=== PATIENT | male | born 1990 | race Hispanic/Latino ===

== ENCOUNTER 2018-03-03 21:20 | Emergency (ER) | payer SELFPAY ==
[2018-03-03 21:36] VITALS: BP 121/71
--- NOTE | 2018-03-04 01:32 | Emergency Department Report ---
ED Medical Clearance HPI - General Chief complaint: Medical Clearance Stated complaint: MEDICATION REFILL Time Seen by Provider: 03/04/18 01:03 Source: patient Mode of arrival: Ambulatory - History of Present Illness Initial comments: Patient denies acute complaint at this time requesting refill for gabapentin 800 mg by mouth 3 times a day on years thyroid cannot see for 3 weeks Home medications: Home Medications Medication Instructions Recorded Confirmed Last Taken Neurontin 800 mg PO TID 03/03/18 03/03/18 Unknown Previous Rx's Medication Instructions Recorded Last Taken Type Gabapentin [Neurontin] 800 mg PO TID #90 tablet 03/04/18 Unknown Rx Allergies/Adverse reactions: Allergies Allergy/AdvReac Type Severity Reaction Status Date / Time levetiracetam [From [facility]] Allergy Hives Verified 03/03/18 21:36 ED Review of Systems ROS: Stated complaint: MEDICATION REFILL Other details as noted in HPI Constitutional: denies: chills, fever Eyes: denies: eye pain, eye discharge, vision change ENT: denies: ear pain, throat pain Respiratory: denies: cough, shortness of breath, wheezing Cardiovascular: denies: chest pain, palpitations Endocrine: no symptoms reported Gastrointestinal: denies: abdominal pain, nausea, diarrhea Genitourinary: denies: urgency, dysuria Musculoskeletal: denies: back pain, joint swelling, arthralgia Skin: denies: rash, lesions Neurological: denies: headache, weakness, paresthesias Psychiatric: denies: anxiety, depression Hematological/Lymphatic: denies: easy bleeding, easy bruising ED Past Medical Hx - Past Medical History Hx Seizures: Yes - Surgical History Past Surgical History?: No - Social History Smoking Status: Current Every Day Smoker Substance Use Type: None - Medications Home Medications: Home Medications Medication Instructions Recorded Confirmed Last Taken Type Neurontin 800 mg PO TID 03/03/18 03/03/18 Unknown History Gabapentin [Neurontin] 800 mg PO TID #90 tablet 03/04/18 Unknown Rx ED Physical Exam - General Limitations: No Limitations General appearance: alert, in no apparent distress - Head Head exam: Present: atraumatic, normocephalic - Eye Eye exam: Present: normal appearance - ENT ENT exam: Present: mucous membranes moist - Neck Neck exam: Present: normal inspection - Respiratory Respiratory exam: Present: normal lung sounds bilaterally. Absent: respiratory distress - Cardiovascular Cardiovascular Exam: Present: regular rate, normal rhythm. Absent: systolic murmur, diastolic murmur, rubs, gallop - GI/Abdominal GI/Abdominal exam: Present: soft, normal bowel sounds - Rectal Rectal exam: Present: deferred - Extremities Exam Extremities exam: Present: normal inspection - Back Exam Back exam: Present: normal inspection - Neurological Exam Neurological exam: Present: alert, oriented X3 - Psychiatric Psychiatric exam: Present: normal affect, normal mood - Skin Skin exam: Present: warm, dry, intact, normal color. Absent: rash ED Course Vital Signs 03/03/18 21:27 Temperature 98.7 F Pulse Rate 96 H Respiratory 18 Rate Blood Pressure 121/71 O2 Sat by Pulse 97 Oximetry ED Medical Decision Making - Medical Decision Making Patient with no acute complaint and history of HIV has ID scheduled in before 3 weeks ED Disposition Clinical Impression: Medication refill Disposition: / SHRT-TRM GEN HOSP IP Is pt being admited?: No Does the pt Need Aspirin: No Condition: Good Instructions: Gabapentin (By mouth) Prescriptions: Gabapentin [Neurontin] 800 mg PO TID #90 tablet Referrals: PRIMARY CARE, [Primary Care Provider] - 3-5 Days Forms: Work/School Release Form(ED) Time of Disposition: 01:35
== END 2018-03-04 01:40 | disposition short-term general hospital (02) ==
LOC: ED 21:20
DX: Z76.0 Encounter for issue of repeat prescription (principal); F17.200 Nicotine dependence, unspecified, uncomplicated; Z88.6 Allergy status to analgesic agent
CPT/HCPCS: 99282